=== PATIENT | female | born 1980 | race American Indian/Alaskan Native ===

== ENCOUNTER 2019-08-26 15:45 | Emergency (ER) | payer MEDICAID ==
--- NOTE | 2019-08-26 18:38 | Event Note ---
ED Screening Note Date of service: 08/26/19 Time: 18:36 ED Screening Note: 39 y/o female comes in for sore throat times 4 days. Started Amoxicillin 2 days ago from Urgent care. This initial assessment/diagnostic orders/clinical plan/treatment(s) is/are subject to change based on patients health status, clinical progression and re- assessment by fellow clinical providers in the ED. Further treatment and workup at subsequent clinical providers discretion. Patient/guardian urged not to elope from the ED as their condition may be serious if not clinically assessed and managed. Initial orders include: rapid strep
--- NOTE | 2019-08-26 21:05 | Emergency Department Report ---
ED General Adult HPI - General Chief complaint: Dental/Oral Stated complaint: MOUTH PAIN Time Seen by Provider: 08/26/19 18:33 Source: patient Mode of arrival: Ambulatory Limitations: No Limitations - History of Present Illness Initial comments: Patient is a 39-year-old -[place] female with no past medical history who presents to the ED with component of acute onset persistent area sore throat and swollen tonsils and bilateral anterior cervical lymph node pain for the last 5 days. Patient states that she is currently on amoxicillin 500 mg twice a day for the last 3 days. Patient denies dizziness, fever, chills, nausea, vomiting, diarrhea, chest pain, shortness of breath, headache, change in vision, syncope or abdominal pain. Patient states that the symptoms have worsened the last 24 hours. MD Complaint: Sore throat; lymph node pain -: Sudden, days(s) (5) Location: mouth Severity scale (0 -10): 7 Quality: aching, sharp Consistency: constant Improves with: none Worsens with: eating Associated Symptoms: denies other symptoms, loss of appetite. denies: confusion, chest pain, cough, diaphoresis, fever/chills, headaches, malaise, nausea/vomiting, rash, seizure, shortness of breath, syncope, weakness Treatments Prior to Arrival: NSAID - Related Data Previous Rx's Medication Instructions Recorded Last Taken Type Acetaminophen/Codeine [Tylenol 1 tab PO Q6H PRN #12 tab 08/26/19 Unknown Rx /Codeine # 3 tab] Clindamycin [Clindamycin CAP] 300 mg PO Q8HR #60 capsule 08/26/19 Unknown Rx Ondansetron [Zofran Odt] 4 mg PO Q6HR PRN #15 tab.rapdis 08/26/19 Unknown Rx methylPREDNISolone [Medrol 4MG 4 mg PO DAILY #21 tab.ds.pk 08/26/19 Unknown Rx DOSEPAK (21 tabs)] Allergies Allergy/AdvReac Type Severity Reaction Status Date / Time No Known Allergies Allergy Unverified 08/26/19 18:33 ED Review of Systems ROS: Stated complaint: MOUTH PAIN Other details as noted in HPI Constitutional: denies: chills, fever Eyes: denies: eye pain, eye discharge, vision change ENT: throat pain, congestion. denies: ear pain Respiratory: denies: cough, shortness of breath, wheezing Cardiovascular: denies: chest pain, palpitations Endocrine: no symptoms reported Gastrointestinal: denies: abdominal pain, nausea, diarrhea Genitourinary: denies: urgency, dysuria, discharge Musculoskeletal: denies: back pain, joint swelling, arthralgia Skin: denies: rash, lesions Neurological: denies: headache, weakness, paresthesias Psychiatric: denies: anxiety, depression Hematological/Lymphatic: denies: easy bleeding, easy bruising ED Past Medical Hx - Past Medical History Previous Medical History?: No - Surgical History Past Surgical History?: No Additional Surgical History: - Social History Smoking Status: Current Every Day Smoker Substance Use Type: Alcohol - Medications Home Medications: Home Medications Medication Instructions Recorded Confirmed Last Taken Type Acetaminophen/Codeine [Tylenol 1 tab PO Q6H PRN #12 tab 08/26/19 Unknown Rx /Codeine # 3 tab] Clindamycin [Clindamycin CAP] 300 mg PO Q8HR #60 capsule 08/26/19 Unknown Rx Ondansetron [Zofran Odt] 4 mg PO Q6HR PRN #15 tab.rapdis 08/26/19 Unknown Rx methylPREDNISolone [Medrol 4MG 4 mg PO DAILY #21 tab.ds.pk 08/26/19 Unknown Rx DOSEPAK (21 tabs)] ED Physical Exam - General Limitations: No Limitations General appearance: alert, in no apparent distress - Head Head exam: Present: atraumatic, normocephalic, normal inspection - Eye Eye exam: Present: normal appearance, PERRL, EOMI Pupils: Present: normal accommodation - ENT ENT exam: Present: mucous membranes moist, TM's normal bilaterally, normal external ear exam, other (erythematous and mildly swollen tonsils and oropharynx, no tonsillar abscess) - Neck Neck exam: Present: normal inspection, full ROM, lymphadenopathy - Respiratory Respiratory exam: Present: normal lung sounds bilaterally. Absent: respiratory distress, wheezes, rales, chest wall tenderness, decreased breath sounds, prolonged expiratory - Cardiovascular Cardiovascular Exam: Present: regular rate, normal rhythm, normal heart sounds. Absent: systolic murmur, diastolic murmur, rubs, gallop - GI/Abdominal GI/Abdominal exam: Present: soft, normal bowel sounds. Absent: tenderness, guarding, hyperactive bowel sounds - Extremities Exam Extremities exam: Present: normal inspection, full ROM, normal capillary refill - Back Exam Back exam: Present: normal inspection, full ROM - Neurological Exam Neurological exam: Present: alert, oriented X3, CN II-XII intact, normal gait, reflexes normal - Psychiatric Psychiatric exam: Present: normal affect, normal mood - Skin Skin exam: Present: warm, dry, intact, normal color. Absent: rash ED Course Vital Signs 08/26/19 18:27 Temperature 99.7 F H Pulse Rate 102 H Respiratory 16 Rate Blood Pressure 152/79 O2 Sat by Pulse 97 Oximetry ED Medical Decision Making - Medical Decision Making This is a 39-year-old female who presented to the ED with persistent severe sore throat for 5 days despite taking oral amoxicillin 500 mg twice a day for the last 3 days. In the ED, patient's alert and oriented 3 and is not in distress. Patient was discharged home on antibiotics, clindamycin and Medrol Dosepak and is advised to follow-up with her primary care physician in 7-10 days for reevaluation or return to the ED immediately if symptoms get worse. - Differential Diagnosis tonsillitis; pharyngitis; URI; Lymphadenopathy Critical care attestation.: If time is entered above; I have spent that time in minutes in the direct care of this critically ill patient, excluding procedure time. ED Disposition Clinical Impression: Acute bacterial tonsillitis Acute pharyngitis Qualifiers: Pharyngitis/tonsillitis etiology: other specified organisms Qualified Code(s): J02.8 - Acute pharyngitis due to other specified organisms Disposition: DC-01 TO HOME OR SELFCARE Is pt being admited?: No Does the pt Need Aspirin: No Condition: Stable Instructions: Pharyngitis (ED), Tonsillitis (ED) Additional Instructions: Take medications with food, drink plenty of fluids and follow up with your primary care physician in 7-10 days for reevaluation. Return to the emergency Department immediately if symptoms get worse. Prescriptions: Clindamycin [Clindamycin CAP] 300 mg PO Q8HR #60 capsule methylPREDNISolone [Medrol 4MG DOSEPAK (21 tabs)] 4 mg PO DAILY #21 tab.ds.pk Acetaminophen/Codeine [Tylenol /Codeine # 3 tab] 1 tab PO Q6H PRN #12 tab PRN Reason: Pain , Severe (7-10) Ondansetron [Zofran Odt] 4 mg PO Q6HR PRN #15 tab.rapdis PRN Reason: Nausea Referrals: [facility] [Outside] - 7-10 days Forms: Work/School Release Form(ED) Time of Disposition: 21:03 Print Language: MALAY
[2019-08-26] MEDS ORDERED: predniSONE 20 MG TAB PO ONE (21:09)
[2019-08-26] MEDS ORDERED: HYDROcodone/ACETAMINOPHEN 5-325 MG TAB PO ONE (21:09)
[2019-08-26] MEDS ORDERED: ONDANSETRON 4 MG ODT TAB PO ONE (21:09)
[2019-08-26] MEDS ORDERED: CLINDAMYCIN 300 MG CAP PO ONE (21:09)
[2019-08-26 21:41] VITALS: BP 113/81
== END 2019-08-26 22:29 | disposition home or self-care (01) ==
LOC: ED 15:45
DX: J02.8 Acute pharyngitis due to other specified organisms (principal); J03.80 Acute tonsillitis due to other specified organisms; B96.89 Other specified bacterial agents as the cause of diseases classified elsewhere; F17.200 Nicotine dependence, unspecified, uncomplicated
CPT/HCPCS: 87116; 87430; 99283; J7512; Q0162

== ENCOUNTER 2021-01-16 19:44 | Emergency (ER) | payer MEDICAID ==
[2021-01-16 19:52] VITALS: BP 141/72
--- NOTE | 2021-01-16 22:57 | Emergency Department Report ---
ED General Adult HPI - General Chief complaint: Neuro Symptoms/Deficit Stated complaint: LEFT ARM NUMBNESS AND FACE, HEADACHE Time Seen by Provider: 01/16/21 22:57 Source: patient Mode of arrival: Ambulatory Limitations: No Limitations - History of Present Illness Initial comments: 40 year old female who reports no significant past medical hx presents to ED with complaints of left arm and lips Numbness and pressure in left arm. Patient states her symptoms started yesterday. Patient states that symptoms have been constant. She reports also tingling in her left arm, as well as occipital headache which has been intermittent and posterior neck pain. She denies any recent injury to her head/face or neck. She denies any associated vision changes, speech changes, focal weakness, chest pain, shortness of breath or any lower extremity symptoms. She denies any abdominal pain, nausea or vomiting. MD Complaint: Left arm and lips numbness and left arm pain -: Gradual ( yesterday ) - Related Data Previous Rx's Medication Instructions Recorded Last Taken Type Ketorolac [Toradol] 10 mg PO Q6H PRN #30 tablet 01/17/21 Unknown Rx methOCARBAMOL [Robaxin TAB] 750 mg PO Q8H PRN #30 tablet 01/17/21 Unknown Rx Allergies Allergy/AdvReac Type Severity Reaction Status Date / Time No Known Allergies Allergy Unverified 08/26/19 18:33 ED Review of Systems ROS: Stated complaint: LEFT ARM NUMBNESS AND FACE, HEADACHE Other details as noted in HPI Comment: All other systems reviewed and negative Constitutional: denies: see HPI, chills, diaphoresis, fever, malaise, weakness Eyes: denies: eye pain, eye discharge, vision change ENT: denies: ear pain, throat pain, dental pain, hearing loss, epistaxis, congestion Respiratory: denies: cough, orthopnea, shortness of breath, SOB with exertion, SOB at rest, stridor, wheezing Cardiovascular: denies: chest pain, palpitations, dyspnea on exertion, edema, syncope, paroxysmal nocturnal dyspnea Gastrointestinal: denies: abdominal pain, nausea, diarrhea, constipation, hematemesis, melena, hematochezia Genitourinary: denies: urgency, dysuria, frequency, hematuria, discharge, abnormal menses, dyspareunia Musculoskeletal: myalgia (Left arm pain), other (Posterior neck pain) Skin: denies: rash, lesions, change in color, change in hair/nails, pruritus Neurological: headache, numbness, paresthesias. denies: weakness, confusion, abnormal gait, vertigo Psychiatric: denies: anxiety, depression, auditory hallucinations, visual hallucinations, homicidal thoughts, suicidal thoughts Hematological/Lymphatic: denies: easy bleeding, easy bruising, swollen glands ED Past Medical Hx - Past Medical History Previous Medical History?: No - Surgical History Past Surgical History?: Yes Additional Surgical History: - Social History Smoking Status: Current Every Day Smoker Substance Use Type: Alcohol - Medications Home Medications: Home Medications Medication Instructions Recorded Confirmed Last Taken Type Ketorolac [Toradol] 10 mg PO Q6H PRN #30 tablet 01/17/21 Unknown Rx methOCARBAMOL [Robaxin TAB] 750 mg PO Q8H PRN #30 tablet 01/17/21 Unknown Rx ED Physical Exam - General Limitations: No Limitations General appearance: alert, in no apparent distress - Head Head exam: Present: atraumatic, normocephalic, normal inspection - Eye Eye exam: Present: normal appearance, PERRL, EOMI Pupils: Present: normal accommodation - ENT ENT exam: Present: normal exam, normal orophraynx, mucous membranes moist - Neck Neck exam: Present: normal inspection, tenderness (diffuse midline ttp and left paraspinal muscle ttp posterior neck and left trapezius muscle tenderness), full ROM - Respiratory Respiratory exam: Present: normal lung sounds bilaterally. Absent: respiratory distress, wheezes, rales, rhonchi - Cardiovascular Cardiovascular Exam: Present: regular rate, normal rhythm, normal heart sounds - GI/Abdominal GI/Abdominal exam: Present: soft. Absent: distended, tenderness, guarding, rebound - Extremities Exam Extremities exam: Present: other (Diffuse muscle ttp throughout LUE. No swelling, bruising, or deformity noted. ) - Neurological Exam Neurological exam: Present: alert, oriented X3, CN II-XII intact, normal gait, other (Normal [id number], normal [id number], no pronator drift, normal gait; strength bilateral upper extremity 5 out of 5 strength bilateral lower extremity 5 out of 5 and sensation normal and equal in face, upper extremity and lower extremity) - Expanded Neurological Exam Expanded Patient oriented to: Present: person, place, time Speech: Present: fluid speech Cranial nerves: EOM's Intact: Normal, Gag Reflex: Normal, Facial Sensation: No rmal Cerebellar function: Finger to Nose: Normal, Heel to Wong: Normal Sensory exam: Upper Extremity Light Touch: Normal, Lower Extremity Light Touch: Normal Motor strength exam: RUE: 5, LUE: 5, RLE: 5, LLE: 5 Best Eye Response (Windfall): (4) open spontaneously Best Motor Response (Windfall): (6) obeys commands Best Verbal Response (Eugenio): (5) oriented Windfall Total: 15 - Psychiatric Psychiatric exam: Present: normal affect, normal mood - Skin Skin exam: Present: intact ED Course Vital Signs 01/16/21 19:51 Temperature 99.0 F Pulse Rate 86 Respiratory 18 Rate Blood Pressure 141/72 O2 Sat by Pulse 96 Oximetry ED Medical Decision Making - Lab Data Result diagrams: 01/16/21 23:14 01/16/21 23:14 - EKG Data EKG shows normal: sinus rhythm Rate: normal (69) - EKG Data Interpretation: normal EKG - Radiology Data Radiology results: report reviewed Ordering Physician: MEREDITH COLE Date of Service: 01/16/21 Procedure(s): CT head/brain wo con Accession Number(s): [id number] cc: MEREDITH COLE CT HEAD WITHOUT CONTRAST HISTORY: Numbness face / Left arm numbness COMPARISON: None TECHNIQUE: CT imaging of the head was performed in the axial, sagittal, and coronal projections and bone algorithm in axial projection in the soft tissue algorithm. All CT scans at this location are performed using CT dose reduction for ALARA by means of automated exposure control. CONTRAST: None. FINDINGS: Cerebral and Cerebellar Hemispheres: No evidence of mass or mass effect. No midline shift. No acute hemorrhage. No acute cortical infarction. No extra-axial fluid collection. Ventricles: Normal in size and configuration for age. Osseous Structures: No significant abnormality. Visualized Paranasal Sinuses: No significant abnormality. Additional Findings: None IMPRESSION: 1. No acute intracranial abnormality. NOTE: Acute infarct may not be visible by noncontrast CT. Signer Name: Steven Barreto MD Signed: 01/17/2021 12:16 AM Workstation Name: [id number] Transcribed By: WG Dictated By: Steven Barreto MD Electronically Authenticated By: Steven Barreto MD Signed Date/Time: 01/17/21 001 DD/ TD/TT: Patient: RASHAWN SON MR#: [id number] : 1980 Acct:[id number] Age/Sex: 40 / F ADM Date: 01/16/21 Loc: ED Attending Dr: Ordering Physician: MEREDITH COLE Date of Service: 01/16/21 Procedure(s): XR spine cervical 2-3V Accession Number(s): [id number] cc: MEREDITH COLE Fluoro Time In Minutes: CLINICAL DATA: Radiculopathy type symptoms TECHNICAL DATA: AP, lateral, and odontoid views of the cervical spine were obtained. FINDINGS: The vertebral body heights, disc spaces, and alignment are well within normal limits. There is no evidence of fracture. No prevertebral soft tissue swelling is evident. IMPRESSION: Normal alignment without evidence of fracture. Signer Name: Steven Barreto MD Signed: 01/17/2021 1:38 AM Workstation Name: [id number] Transcribed By: Dictated By: Steven Barreto MD Electronically Authenticated By: Steven Barreto MD Signed Date/Time: 01/17/21137 DD/ 7 TD/TT: - Medical Decision Making Head CT shows nothing acute. Cervical spine xray nothing acute. EKG shows normal sinus rhythm without any STEMI, or other acute ischemic changes or significant dysrhythmias. Labs reviewed and overall unremarkable. Patient currently resting comfortably. She is not in any acute pain or respiratory distress. She is not toxic or ill-appearing she is awake alert oriented x3 with a GCS of 15. She has no focal neurological deficits on exam. Her vital signs are stable. At this time, her history, exam, diagnostic testing and the patient's current condition does not suggest meningitis, stroke, sepsis, subarachnoid hemorrhage, intracranial bleed, encephalitis, ACS/AK, PE or other significant pathology that would warrant further testing, continued ED treatment, admission, neurological consultation or other specialist evaluation. Discussed imaging results and lab results with patient. Discussed suspected diagnosis and treatment plan with patient. She will be given referral to primary care physician as well as [facility] for follow-up if her symptoms persist but she understands to return immediately to the ER. Patient expressed understanding of instructions and agree with plan. Patient was stable at time of discharge. Critical care attestation.: If time is entered above; I have spent that time in minutes in the direct care of this critically ill patient, excluding procedure time. ED Disposition Clinical Impression: Headache, Paresthesia, Radicular pain in left arm Disposition: DC- TO HOME OR SELFCARE Is pt being admited?: No Does the pt Need Aspirin: No Condition: Stable Instructions: Paresthesia, Radicular Pain, Tension Headache, Adult, [id number] Additional Instructions: Take the toradol and the muscle relaxer as prescribed. I recommend that you follow up with Primary care physician and or the Brain/telecommunications specialist listed on your discharge instructions if your symptoms persist. Return to ED if your symptoms worsens. Prescriptions: methOCARBAMOL [Robaxin TAB] 750 mg PO Q8H PRN #30 tablet PRN Reason: Pain Ketorolac [Toradol] 10 mg PO Q6H PRN #30 tablet PRN Reason: Pain Referrals: [facility] [Provider Group] - 3-5 Days (ASk for [place] location ) JESUS NAPOLES MD [Staff Physician] - 3-5 Days (Primary care physician ) Forms: Work/School Release Form(ED) Time of Disposition: 01:44
[2021-01-16] MEDS ORDERED: KETOROLAC 60 MG/2 ML INJ IM ONE (23:08)
[2021-01-16 23:42] LABS: Basophils # (Auto) 0.1 K/mm3 (0.0-0.1); Basophils % (Auto) 0.7 % (0.0-1.8); Eosinophils # (Auto) 0.4 K/mm3 (0.0-0.4); Eosinophils % (Auto) 4.2 % (0.0-4.3); Hemoglobin 12.1 gm/dl (10.1-14.3); Lymphocytes # (Auto) 3.8 K/mm3 (1.2-5.4); Lymphocytes % (Auto) 40.7 % (13.4-35.0); Mean Corpuscular HGB Conc 34 % (30-34); Mean Corpuscular Volume 86 fl (79-97); Monocytes # (Auto) 0.5 K/mm3 (0.0-0.8); Monocytes % (Auto) 5.8 % (0.0-7.3); Platelet Count 273 K/mm3 (140-440); Red Blood Count 4.21 M/mm3 (3.65-5.03); Red Cell Distribution Width 14.8 % (13.2-15.2)
[2021-01-17 00:02] LABS: Alanine Aminotransferase 16 units/L (7-56); Albumin 4.2 g/dL (3.9-5); Blood Urea Nitrogen 10 mg/dL (7-17); Calcium 8.9 mg/dL (8.4-10.2); Hemolysis Index 10
[2021-01-17 00:04] LABS: BUN/Creatinine Ratio 14
--- NOTE | 2021-01-17 00:21 | Cat Scan Report ---
CT HEAD WITHOUT CONTRAST HISTORY: Numbness face / Left arm numbness COMPARISON: None TECHNIQUE: CT imaging of the head was performed in the axial, sagittal, and coronal projections and bone algori thm in axial projection in the soft tissue algorithm. All CT scans at this location are performed using CT dose reduction for ALARA by means of automated e xposure control. CONTRAST: None. FINDINGS: Cerebral and Cerebellar Hemispheres: No evidence of mass or mass effect. No midline shift. No acute hemorrhage. No acute cortical infarction. No extra-axial fluid collection. Ventricles: Normal in size and configuration for age. Osseous Structures: No significant abnormality. Visualized Paranasal Sinuses: No significant abnormality. Additional Findings: None IMPRESSION: 1. No acute intracranial abnormality. NOTE: Acute infarct may not be visible by noncontrast CT. Signer Name: Steven Barreto MD Signed: 01/17/2021 12:16 AM Workstation Name: [id number]
--- NOTE | 2021-01-17 01:43 | XRay Report ---
CLINICAL DATA: Radiculopathy type symptoms TECHNICAL DATA: AP, lateral, and odontoid views of the cervical spine were obtained. FINDINGS: The vertebral body heights, disc spaces, and alignment are well within normal limits. There is no eusebio dence of fracture. No prevertebral soft tissue swelling is evident. IMPRESSION: Normal alignment without evidence of fracture. Signer Name: Steven Barreto MD Signed: 01/17/2021 1:38 AM Workstation Name: [id number]
--- NOTE | 2021-01-17 10:25 | Electrocardiograph Report ---
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
== END 2021-01-17 01:50 | disposition home or self-care (01) ==
LOC: ED 19:44
DX: R51.9 Headache, unspecified (principal); M79.602 Pain in left arm; R20.2 Paresthesia of skin; R20.0 Anesthesia of skin; F17.200 Nicotine dependence, unspecified, uncomplicated; Z98.890 Other specified postprocedural states; Z72.89 Other problems related to lifestyle; Z79.899 Other long term (current) drug therapy
CPT/HCPCS: 36415; 70450; 72040; 80053; 83735; 84484; 84703; 85025; 93005; 99284; J1885